=== PATIENT | female | born 1940 | race Caucasian/White ===

== ENCOUNTER 2018-04-19 08:34 | Day surgery (SDC) | payer MEDICARE, OTHER ==
[~2018-04-19] VITALS: Ht 154.9 cm; Wt 46.6 kg
[~2018-04-19 08:34] MED LIST: ACET500T71 PO; ASCO-96 PO; ASPI-496 PO; ASPI-650 PO; CHOL10003 PO; CHRO1TAB7 PO; CRAN500T2 PO; CYAN50008 PO; DICL75TA2 PO; DIPH25TA41 PO; DOCU-131 PO; Focus Factor PO; GABA300C10 PO; GLUC1TAB9 PO; HYDR-3237 PO; HYDR12.58 PO; LISI-170 PO; OMEG1CAP24 PO; ONDA4TAB7 PO; OXYC5CAP2 PO; [UNRECOGNIZED DRUG - OTHER] PO; [UNRECOGNIZED DRUG - REMARK]
[2018-04-19] MEDS ORDERED: THROMBIN 20,000 UNIT VIAL TP ONE (09:05)
[2018-04-19] MEDS ORDERED: METHYLENE BLUE 10 MG/ML 10ML ONE (09:05)
[2018-04-19] MEDS ORDERED: BUPIVACAINE/PF-EPI 0.5% 1:200K ONE (09:05)
[2018-04-19] MEDS ORDERED: BACITRACIN 50,000 UNIT ONE (09:06)
[2018-04-19 09:39] VITALS: BP 114/57
[2018-04-19] MEDS ORDERED: FENTANYL PF 250 MCG/5ML ONE (11:54)
[2018-04-19] MEDS ORDERED: PROMETHAZINE 12.5 MG SUPP PR PRN (12:30)
[2018-04-19] MEDS ORDERED: FENTANYL PF 100 MCG/2ML IV PRN (12:30)
[2018-04-19] MEDS ORDERED: hydrALAzine 20 MG/ML, 1ML IV PRN (12:30)
[2018-04-19] MEDS ORDERED: ONDANSETRON 2MG/ML, 2ML IV PRN (12:30)
[2018-04-19] MEDS ORDERED: MEPERIDINE/PF 25MG/0.5ML IVPush PRN (12:30)
[2018-04-19] MEDS ORDERED: OXYcodone 5 MG/5 ML ORAL.SOL UDC PO PRN (12:30)
[2018-04-19] MEDS ORDERED: HYDROmorphone 1 MG/ML, 1ML IV PRN (12:30)
[2018-04-19] MEDS ORDERED: ACETAMINOPHEN 325 MG TABLET PO PRN (12:30)
[2018-04-19] MEDS ORDERED: METOPROLOL 1 MG/ML, 5ML IV PRN (12:30)
[2018-04-19] MEDS ORDERED: LABETALOL 5MG/ML, 20ML IV PRN (12:30)
[2018-04-19] MEDS ORDERED: methylPREDNISolone SOD SUCC 40 MG/ML ONE (12:45)
[2018-04-19] MEDS ORDERED: FENTANYL PF 100 MCG/2ML ONE (12:45)
[2018-04-19] MEDS ORDERED: DEXAMETHASONE 4 MG/ML, 1ML ONE (13:04)
[2018-04-19] MEDS ORDERED: BUPIVACAINE/PF-EPI 0.5% 1:200K INFIL ONE (13:05)
[2018-04-19] MEDS ORDERED: CEFAZOLIN 1,000 MG ONE (13:06)
[2018-04-19] MEDS ORDERED: ROCURONIUM 10MG/ML,5ML ONE (13:23)
[2018-04-19] MEDS ORDERED: PROPOFOL 10 MG/ML, 20ML ONE (13:23)
[2018-04-19] MEDS ORDERED: ONDANSETRON 2MG/ML, 2ML ONE (13:57)
[2018-04-19] MEDS ORDERED: OXYC1TAB7 PO (14:25)
[2018-04-19] MEDS ORDERED: TIZA2TAB PO (14:25)
[2018-04-19] MEDS ORDERED: SENNA/DOCUSATE TABLET PO PRN (14:30)
[2018-04-19] MEDS ORDERED: PROMETHAZINE 25 MG/ML, 1ML IM PRN (14:30)
[2018-04-19] MEDS ORDERED: ONDANSETRON 2MG/ML, 2ML IVPush PRN (14:30)
[2018-04-19] MEDS ORDERED: NS + 20MEQ KCL 1,000 ML IV SCH (14:30)
[2018-04-19] MEDS ORDERED: DIPHENHYDRAMINE 50 MG CAPSULE PO PRN (14:30)
[2018-04-19] MEDS ORDERED: TIZANIDINE 4MG TABLET PO PRN (14:30)
[2018-04-19] MEDS ORDERED: CEFAZOLIN PMX 1GM/50ML 50 ML IVPB SCH (14:30)
[2018-04-19] MEDS ORDERED: morphine SULFATE 10 MG/ML, 1ML IVPush PRN (14:30)
[2018-04-19] MEDS ORDERED: MAGNESIUM HYDROXIDE 8%, 30ML UDC PO PRN (14:30)
[2018-04-19] MEDS ORDERED: DOCUSATE 100 MG CAPSULE PO PRN (14:30)
[2018-04-19] MEDS ORDERED: PHARMACY MAY ADJ FOR RENAL FX MC PRN (14:30)
[2018-04-19] MEDS ORDERED: OXYcodone/APAP 5/325MG TABLET PO PRN (14:30)
[2018-04-19] MEDS ORDERED: OXYcodone 5 MG/5 ML ORAL.SOL UDC ONE (14:40)
[2018-04-19] MEDS ORDERED: SODIUM CHLORIDE FLUSH 10ML SYR IVF SCH (21:00)
[2018-04-20] MEDS ORDERED: CHOLECALCIFEROL 1,000 UNIT TABLET PO SCH (09:00)
[2018-04-20] MEDS ORDERED: LISINOPRIL 20 MG TABLET PO SCH (09:00)
[2018-04-20] MEDS ORDERED: HYDROCHLOROTHIAZIDE 12.5 MG CAPSULE PO SCH (09:00)
== END 2018-04-19 17:30 | disposition home or self-care (01) ==
LOC: OR 08:34 → 4NOR 08:35 → OR 17:30
PROVIDERS: ATTEND Neurological Surgery
DX: M48.061 Spinal stenosis, lumbar region without neurogenic claudication (principal); M54.16 Radiculopathy, lumbar region; Z87.39 Personal history of other diseases of the musculoskeletal system and connective tissue; Z79.82 Long term (current) use of aspirin
CPT/HCPCS: 63047; 63048; 72100; J0690; J1100; J2405; J2704; J2920; J3010; G0378; Q9968

== ENCOUNTER 2018-07-08 07:06 | Inpatient (IN) | payer MEDICARE, OTHER ==
[~2018-07-08] VITALS: Ht 154.9 cm; Wt 54.7 kg
[~2018-07-08 07:06] MED LIST changes: +BACITRACIN 50,000 UNIT ONE; +BUPIVACAINE/PF 0.25% ONE; -DICL75TA2 PO; +DICL75TA3 PO; +EPINEPHRINE 1 MG/ML, 1ML ONE; -HYDR12.58 PO; +HYDROCHLOROTH12.5 MG PO; +OXYC1TAB7 PO; +THROMBIN 5,000 UNIT VIAL TP ONE; +TIZA2TAB PO
[2018-07-08] MEDS ORDERED: BUPIVACAINE/PF-EPI 0.5% 1:200K ONE (07:12)
[2018-07-08] MEDS ORDERED: GABAPENTIN 300 MG CAPSULE PO ONE (07:30)
[2018-07-08] MEDS ORDERED: OxyconTIN ER 10 MG TAB.ER PO ONE (07:30)
[2018-07-08] MEDS ORDERED: ACETAMINOPHEN 500 MG TABLET PO ONE (07:30)
[2018-07-08] MEDS ORDERED: ONDANSETRON ODT 8 MG PO ONE (07:30)
[2018-07-08] MEDS ORDERED: LACTATED RINGERS 1,000 ML IV SCH (07:31)
[2018-07-08] MEDS ORDERED: ACYC-114 PO (08:09)
[2018-07-08] MEDS ORDERED: ASPI-496 PO (08:09)
[2018-07-08 08:18] VITALS: BP 119/68
[2018-07-08] MEDS ORDERED: MIDAZOLAM 1 MG/ML, 2ML ONE (10:03)
[2018-07-08] MEDS ORDERED: FENTANYL PF 250 MCG/5ML ONE (10:03)
[2018-07-08] MEDS ORDERED: VANCOMYCIN 1,000 MG ONE (10:27)
[2018-07-08] MEDS ORDERED: PHENYLEPHRINE 10 MG/ML ONE (11:04)
[2018-07-08] MEDS ORDERED: PROPOFOL 50 ML ONE ×3 (11:04→14:42)
[2018-07-08] MEDS ORDERED: NEOSTIGMINE 1 MG/ML, 10ML ONE (12:23)
[2018-07-08] MEDS ORDERED: DEXAMETHASONE 4 MG/ML, 1ML ONE (12:23)
[2018-07-08] MEDS ORDERED: ROCURONIUM 10MG/ML,5ML ONE (12:23)
[2018-07-08] MEDS ORDERED: CEFAZOLIN 1,000 MG ONE (12:23)
[2018-07-08] MEDS ORDERED: SUCCINYLCHOLINE 20 MG/ML, 10ML ONE (12:23)
[2018-07-08] MEDS ORDERED: GLYCOPYRROLATE 0.2MG/1ML, 5ML ONE (12:23)
[2018-07-08] MEDS ORDERED: PROPOFOL 10 MG/ML, 20ML ONE (12:23)
[2018-07-08] MEDS ORDERED: EPHEDRINE 50 MG/ML, 1ML ONE (12:34)
[2018-07-08] MEDS ORDERED: ESMOLOL 100 MG/10 ML ONE (16:18)
[2018-07-08 16:51] LABS: BASOPHILS # (AUTO) 0.01 x10^3/uL (0-0.1); BASOPHILS % (AUTO) 0 % (0-1); EOSINOPHILS % (AUTO) 0 % (1-7); LYMPHOCYTES # (AUTO) 0.63 x10^3/uL (1-3.4); LYMPHOCYTES % (AUTO) 7 % (22-44); MD NO; MEAN CORPUSCULAR HEMOGLOBIN 31.1 pg (27.0-34.8); MEAN CORPUSCULAR HGB CONC 33.8 g/dL (32.4-35.8); MEAN CORPUSCULAR VOLUME 92.1 fL (80-100); MEAN PLATELET VOLUME 7.9 fL (7.4-10.4); MONOCYTES # (AUTO) 0.03 x10^3/uL (0.2-0.8); MONOCYTES % (AUTO) 0 % (2-9); NEUTROPHILS # (AUTO) 8.62 x10^3/uL (1.8-6.8); NEUTROPHILS % (AUTO) 93 % (42-75); PLATELET COUNT 226 x10^3/uL (130-400); RED CELL DISTRIBUTION WIDTH 14.1 % (9.6-15.2)
[2018-07-08 16:56] LABS: ANION GAP 8 mmol/L (5-15); CALCIUM 7.8 mg/dL (8.5-10.1); CHLORIDE 106 mmol/L (98-107); CREATININE 0.86 mg/dL (0.55-1.02)
[2018-07-08 16:59] LABS: TROPONIN I < 0.015 ng/mL (0.000-0.045)
[2018-07-08] MEDS ORDERED: HYDROmorphone PCA 30 MG/30 ML IV PRN (17:00)
[2018-07-08] MEDS ORDERED: ACETAMINOPHEN 650 MG/20.3 ML UDC ONE (18:08)
[2018-07-08] MEDS ORDERED: ACETAMINOPHEN 325 MG TABLET PO PRN (18:30)
[2018-07-08] MEDS ORDERED: MAGNESIUM HYDROXIDE 8%, 30ML UDC PO PRN (19:30)
[2018-07-08] MEDS ORDERED: OXYcodone/APAP 5/325MG TABLET PO PRN (19:30)
[2018-07-08] MEDS ORDERED: ONDANSETRON 2MG/ML, 2ML IV PRN (19:30)
[2018-07-08] MEDS ORDERED: ACYCLOVIR MC SCH (19:30)
[2018-07-08] MEDS ORDERED: GABAPENTIN MC SCH (19:30)
[2018-07-08] MEDS ORDERED: BISACODYL 10 MG SUPP PR PRN (19:30)
[2018-07-08] MEDS ORDERED: DIPHENHYDRAMINE 50 MG/ML, 1ML IVPush PRN (19:30)
[2018-07-08] MEDS ORDERED: morphine SULFATE 10 MG/ML, 1ML IV PRN (19:30)
[2018-07-08] MEDS: NS + 20MEQ KCL 1,000 ML IV SCH (20:29)
[2018-07-08] MEDS: CEFAZOLIN PMX 1GM/50ML 50 ML IVPB SCH (21:32)
[2018-07-09] MEDS: CEFAZOLIN PMX 1GM/50ML 50 ML IVPB SCH (03:48)
[2018-07-09 03:59] VITALS: BP 103/58
[2018-07-09 05:16] LABS: BASOPHILS % (AUTO) 0 % (0-1); EOSINOPHILS % (AUTO) 0 % (1-7); LYMPHOCYTES # (AUTO) 0.84 x10^3/uL (1-3.4); LYMPHOCYTES % (AUTO) 9 % (22-44); MD NO; MEAN CORPUSCULAR HEMOGLOBIN 30.6 pg (27.0-34.8); MEAN CORPUSCULAR HGB CONC 33.1 g/dL (32.4-35.8); MEAN CORPUSCULAR VOLUME 92.4 fL (80-100); MEAN PLATELET VOLUME 8.3 fL (7.4-10.4); MONOCYTES # (AUTO) 0.39 x10^3/uL (0.2-0.8); MONOCYTES % (AUTO) 4 % (2-9); NEUTROPHILS # (AUTO) 8.51 x10^3/uL (1.8-6.8); NEUTROPHILS % (AUTO) 87 % (42-75); PLATELET COUNT 183 x10^3/uL (130-400); RED BLOOD COUNT 2.82 x10^6/uL (3.82-5.3); RED CELL DISTRIBUTION WIDTH 14.2 % (9.6-15.2)
[2018-07-09 05:26] LABS: ALBUMIN 2.2 g/dL (3.4-5.0); ANION GAP 9 mmol/L (5-15); CALCIUM 7.4 mg/dL (8.5-10.1); CHLORIDE 106 mmol/L (98-107)
[2018-07-09 05:28] LABS: CREATININE 0.97 mg/dL (0.55-1.02)
[2018-07-09 06:35] VITALS: BP 96/57
[2018-07-09] MEDS: SENNA/DOCUSATE TABLET PO SCH (08:39)
[2018-07-09] MEDS: NS + 20MEQ KCL 1,000 ML IV SCH ×2 (08:43→19:45)
[2018-07-09] MEDS: LISINOPRIL 20 MG TABLET PO SCH (09:00)
[2018-07-09] MEDS: HYDROCHLOROTHIAZIDE 12.5 MG CAPSULE PO SCH (09:00)
[2018-07-09 12:00] LABS: ABSOLUTE RETICS # 0.047 x10^6/uL (0.5-2.5); MEAN CORPUSCULAR HEMOGLOBIN 30.6 pg (27.0-34.8); MEAN CORPUSCULAR HGB CONC 33.4 g/dL (32.4-35.8); MEAN CORPUSCULAR VOLUME 91.4 fL (80-100); MEAN PLATELET VOLUME 8.1 fL (7.4-10.4); PLATELET COUNT 192 x10^3/uL (130-400); RED BLOOD COUNT 2.66 x10^6/uL (3.82-5.3); RED BLOOD COUNT 2.67 x10^6/uL (3.82-5.3); RED CELL DISTRIBUTION WIDTH 14.2 % (9.6-15.2); RETICULOCYTE COUNT % 1.75 % (0.5-1.5)
[2018-07-09 12:14] LABS: BASOPHILS # (AUTO) 0.02 x10^3/uL (0-0.1); BASOPHILS % (AUTO) 0 % (0-1); EOSINOPHILS % (AUTO) 0 % (1-7); LYMPHOCYTES % (AUTO) 10 % (22-44); MD NO; MONOCYTES # (AUTO) 0.74 x10^3/uL (0.2-0.8); MONOCYTES % (AUTO) 6 % (2-9); NEUTROPHILS # (AUTO) 10.13 x10^3/uL (1.8-6.8); NEUTROPHILS % (AUTO) 84 % (42-75)
[2018-07-09 12:32] LABS: THYROID STIMULATING HORMONE 0.894 mIU/L (0.358-3.740)
[2018-07-09 14:21] VITALS: BP_SYST 95; BP_SYST 98; BP_DIAS 63; BP_DIAS 64
[2018-07-09 18:51] VITALS: BP 110/55
[2018-07-09] MEDS: GABAPENTIN 100 MG CAPSULE PO PRN (20:11)
[2018-07-09] MEDS: HYDROcodone/APAP 5/325 TABLET PO PRN (20:11)
[2018-07-10 00:07] VITALS: BP 93/53
[2018-07-10] MEDS: HYDROcodone/APAP 5/325 TABLET PO PRN ×2 (00:16→11:23)
[2018-07-10 06:10] LABS: ANION GAP 7 mmol/L (5-15); CALCIUM 7.7 mg/dL (8.5-10.1); CHLORIDE 108 mmol/L (98-107); CREATININE 0.56 mg/dL (0.55-1.02)
[2018-07-10 06:16] LABS: MEAN CORPUSCULAR HEMOGLOBIN 31.1 pg (27.0-34.8); MEAN CORPUSCULAR HGB CONC 33.7 g/dL (32.4-35.8); MEAN CORPUSCULAR VOLUME 92.1 fL (80-100); MEAN PLATELET VOLUME 8.3 fL (7.4-10.4); PLATELET COUNT 151 x10^3/uL (130-400); RED BLOOD COUNT 2.35 x10^6/uL (3.82-5.3); RED CELL DISTRIBUTION WIDTH 14.2 % (9.6-15.2)
[2018-07-10 06:32] LABS: BASOPHILS # (AUTO) 0.01 x10^3/uL (0-0.1); BASOPHILS % (AUTO) 0 % (0-1); EOSINOPHILS # (AUTO) 0.02 x10^3/uL (0-0.4); EOSINOPHILS % (AUTO) 0 % (1-7); LYMPHOCYTES # (AUTO) 1.01 x10^3/uL (1-3.4); LYMPHOCYTES % (AUTO) 11 % (22-44); MD SCAN; MONOCYTES # (AUTO) 0.65 x10^3/uL (0.2-0.8); MONOCYTES % (AUTO) 7 % (2-9); NEUTROPHILS % (AUTO) 82 % (42-75)
[2018-07-10 06:38] VITALS: BP 107/63
[2018-07-10] MEDS: NS + 20MEQ KCL 1,000 ML IV SCH ×2 (07:51→18:32)
[2018-07-10] MEDS: SENNA/DOCUSATE TABLET PO SCH (07:52)
[2018-07-10] MEDS: LISINOPRIL 20 MG TABLET PO SCH (07:52)
[2018-07-10] MEDS: HYDROCHLOROTHIAZIDE 12.5 MG CAPSULE PO SCH (07:52)
[2018-07-10 12:01] VITALS: BP 102/54
[2018-07-10 17:58] VITALS: BP 130/63
[2018-07-10 19:36] VITALS: BP 133/58
[2018-07-11] VITALS (16 sets, daily range): BP systolic 56–132; BP diastolic 30–69
[2018-07-11] MEDS: HYDROcodone/APAP 5/325 TABLET PO PRN ×2 (04:35→09:33)
[2018-07-11 05:49] LABS: MEAN CORPUSCULAR HEMOGLOBIN 31.3 pg (27.0-34.8); MEAN CORPUSCULAR VOLUME 91.8 fL (80-100); MEAN PLATELET VOLUME 7.9 fL (7.4-10.4); PLATELET COUNT 157 x10^3/uL (130-400); RED BLOOD COUNT 2.23 x10^6/uL (3.82-5.3); RED CELL DISTRIBUTION WIDTH 14.3 % (9.6-15.2)
[2018-07-11 06:23] LABS: BASOPHILS % (AUTO) 0 % (0-1); EOSINOPHILS % (AUTO) 0 % (1-7); LYMPHOCYTES # (AUTO) 0.54 x10^3/uL (1-3.4); LYMPHOCYTES % (AUTO) 5 % (22-44); MD SCAN; MONOCYTES # (AUTO) 0.48 x10^3/uL (0.2-0.8); MONOCYTES % (AUTO) 5 % (2-9); NEUTROPHILS # (AUTO) 9.08 x10^3/uL (1.8-6.8); NEUTROPHILS % (AUTO) 90 % (42-75)
[2018-07-11] MEDS: NS + 20MEQ KCL 1,000 ML IV SCH ×2 (06:49→16:50)
[2018-07-11] MEDS ORDERED: HYDR-3240 PO (08:47)
[2018-07-11] MEDS ORDERED: TIZA2TAB PO (08:47)
[2018-07-11] MEDS: HYDROCHLOROTHIAZIDE 12.5 MG CAPSULE PO SCH (08:56)
[2018-07-11] MEDS: SENNA/DOCUSATE TABLET PO SCH (08:57)
[2018-07-11] MEDS: LISINOPRIL 20 MG TABLET PO SCH (08:57)
[2018-07-11] MEDS ORDERED: TIZANIDINE 4MG TABLET PO PRN (09:00)
[2018-07-11] MEDS ORDERED: SODIUM CHLORIDE 0.9%, 500ML IVBOLUS ONE (13:00)
[2018-07-11] MEDS: GABAPENTIN 100 MG CAPSULE PO PRN (22:02)
[2018-07-11] MEDS ORDERED: ACETAMINOPHEN 325 MG TABLET PO PRN (23:30)
[2018-07-12 01:01] VITALS: BP 133/61
[2018-07-12] MEDS: NS + 20MEQ KCL 1,000 ML IV SCH ×3 (01:18→22:06)
[2018-07-12 05:40] LABS: BASOPHILS # (AUTO) 0.01 x10^3/uL (0-0.1); BASOPHILS % (AUTO) 0 % (0-1); EOSINOPHILS % (AUTO) 0 % (1-7); LYMPHOCYTES # (AUTO) 0.59 x10^3/uL (1-3.4); LYMPHOCYTES % (AUTO) 6 % (22-44); MD NO; MEAN CORPUSCULAR HEMOGLOBIN 31.1 pg (27.0-34.8); MEAN CORPUSCULAR VOLUME 91.4 fL (80-100); MONOCYTES # (AUTO) 0.38 x10^3/uL (0.2-0.8); MONOCYTES % (AUTO) 4 % (2-9); NEUTROPHILS # (AUTO) 9.25 x10^3/uL (1.8-6.8); NEUTROPHILS % (AUTO) 90 % (42-75); PLATELET COUNT 167 x10^3/uL (130-400); RED BLOOD COUNT 2.84 x10^6/uL (3.82-5.3); RED CELL DISTRIBUTION WIDTH 14.4 % (9.6-15.2)
[2018-07-12 07:34] VITALS: BP 132/68
[2018-07-12] MEDS: LISINOPRIL 20 MG TABLET PO SCH (09:00)
[2018-07-12] MEDS: HYDROCHLOROTHIAZIDE 12.5 MG CAPSULE PO SCH (09:00)
[2018-07-12 09:30] VITALS: BP 118/51
[2018-07-12] MEDS: SENNA/DOCUSATE TABLET PO SCH (09:32)
[2018-07-12] MEDS: DOCUSATE 100 MG CAPSULE PO PRN (11:33)
[2018-07-12 14:06] VITALS: BP 133/55
[2018-07-12 19:32] VITALS: BP 108/54
[2018-07-12] MEDS: GABAPENTIN 100 MG CAPSULE PO SCH (20:36)
[2018-07-12] MEDS: HYDROcodone/APAP 5/325 TABLET PO PRN (20:43)
[2018-07-13 00:50] VITALS: BP 112/66
[2018-07-13] MEDS: HYDROcodone/APAP 5/325 TABLET PO PRN ×3 (04:17→19:10)
[2018-07-13 09:00] VITALS: BP 117/50
[2018-07-13] MEDS: NS + 20MEQ KCL 1,000 ML IV SCH ×2 (09:00→18:35)
[2018-07-13] MEDS: SENNA/DOCUSATE TABLET PO SCH (09:08)
[2018-07-13] MEDS: GABAPENTIN 100 MG CAPSULE PO SCH ×2 (09:08→19:10)
[2018-07-13] MEDS: HYDROCHLOROTHIAZIDE 12.5 MG CAPSULE PO SCH (09:08)
[2018-07-13] MEDS: LISINOPRIL 20 MG TABLET PO SCH (09:11)
[2018-07-13] MEDS: TIZANIDINE 2MG TABLET PO PRN (11:04)
[2018-07-13 15:45] VITALS: BP 104/50
[2018-07-13 19:05] VITALS: BP 102/53
[2018-07-14 01:04] VITALS: BP 112/77
[2018-07-14] MEDS: NS + 20MEQ KCL 1,000 ML IV SCH (05:00)
[2018-07-14] MEDS: HYDROcodone/APAP 5/325 TABLET PO PRN ×4 (05:44→23:59)
[2018-07-14 07:26] VITALS: BP 116/49
[2018-07-14] MEDS: GABAPENTIN 100 MG CAPSULE PO SCH ×2 (07:48→19:56)
[2018-07-14] MEDS: TIZANIDINE 2MG TABLET PO PRN ×2 (07:48→19:56)
[2018-07-14] MEDS: SENNA/DOCUSATE TABLET PO SCH (07:48)
[2018-07-14] MEDS: LISINOPRIL 20 MG TABLET PO SCH (11:02)
[2018-07-14] MEDS: HYDROCHLOROTHIAZIDE 12.5 MG CAPSULE PO SCH (11:02)
[2018-07-14 15:21] VITALS: BP 105/59
[2018-07-14] MEDS: DOCUSATE 100 MG CAPSULE PO PRN (20:16)
[2018-07-14 20:26] VITALS: BP 114/43
[2018-07-15 02:24] VITALS: BP 107/50
[2018-07-15] MEDS: HYDROcodone/APAP 5/325 TABLET PO PRN ×4 (04:21→20:48)
[2018-07-15] MEDS: TIZANIDINE 2MG TABLET PO PRN (05:45)
[2018-07-15] MEDS: DOCUSATE 100 MG CAPSULE PO PRN ×2 (05:45→15:44)
[2018-07-15 07:57] VITALS: BP 109/60
[2018-07-15] MEDS: LISINOPRIL 20 MG TABLET PO SCH (09:00)
[2018-07-15] MEDS: GABAPENTIN 100 MG CAPSULE PO SCH ×2 (11:30→20:48)
[2018-07-15] MEDS: SENNA/DOCUSATE TABLET PO SCH (11:30)
[2018-07-15] MEDS: HYDROCHLOROTHIAZIDE 12.5 MG CAPSULE PO SCH (11:31)
[2018-07-15 14:00] VITALS: BP 112/76
[2018-07-15 17:00] VITALS: BP 105/65
[2018-07-15 20:05] VITALS: BP 95/52
[2018-07-16] MEDS: HYDROcodone/APAP 5/325 TABLET PO PRN ×3 (01:07→10:30)
[2018-07-16 03:06] VITALS: BP 93/48
[2018-07-16 07:22] VITALS: BP 112/51
[2018-07-16] MEDS: SENNA/DOCUSATE TABLET PO SCH (08:39)
[2018-07-16] MEDS: GABAPENTIN 100 MG CAPSULE PO SCH (08:39)
[2018-07-16] MEDS: HYDROCHLOROTHIAZIDE 12.5 MG CAPSULE PO SCH (08:39)
[2018-07-16] MEDS: LISINOPRIL 20 MG TABLET PO SCH (08:39)
[2018-07-16 12:35] VITALS: BP 102/66
== END 2018-07-16 13:23 | DRG 453 ==
LOC: ORIP 07:06 → 5SO 18:47 → 4NOR 07-10 17:53
PROVIDERS: ADMIT Neurological Surgery; ATTEND Neurological Surgery
PROC: 0SG30AJ Fusion of Lumbosacral Joint with Interbody Fusion Device, Posterior Approach, Anterior Column, Open Approach (ICD-10-PCS; 2018-07-08)
PROC: 0SG1071 Fusion of 2 or more Lumbar Vertebral Joints with Autologous Tissue Substitute, Posterior Approach, Posterior Column, Open Approach (ICD-10-PCS; 2018-07-08)
PROC: 00UT07Z Supplement Spinal Meninges with Autologous Tissue Substitute, Open Approach (ICD-10-PCS; 2018-07-08)
PROC: 0SG00AJ Fusion of Lumbar Vertebral Joint with Interbody Fusion Device, Posterior Approach, Anterior Column, Open Approach (ICD-10-PCS; principal; 2018-07-08 10:00)
PROC: 30233N1 Transfusion of Nonautologous Red Blood Cells into Peripheral Vein, Percutaneous Approach (ICD-10-PCS; 2018-07-11)
DX: M43.16 Spondylolisthesis, lumbar region (principal); E43 Unspecified severe protein-calorie malnutrition; G97.41 Accidental puncture or laceration of dura during a procedure; D64.9 Anemia, unspecified; I10 Essential (primary) hypertension; M19.90 Unspecified osteoarthritis, unspecified site; Z90.710 Acquired absence of both cervix and uterus; Z79.82 Long term (current) use of aspirin; Z79.899 Other long term (current) drug therapy; Z88.8 Allergy status to other drugs, medicaments and biological substances; Z80.9 Family history of malignant neoplasm, unspecified; Z82.3 Family history of stroke; Z83.3 Family history of diabetes mellitus; M48.00 Spinal stenosis, site unspecified; Z68.22 Body mass index [BMI] 22.0-22.9, adult; I07.1 Rheumatic tricuspid insufficiency
CPT/HCPCS: 36415; 72100; 80048; 82040; 82607; 82746; 83540; 83550; 83735; 84443; 84484; 85025; 85045; 86078; 86850; 86900; 86923; 93005; 93306; 95938; 95941; C1713; C1776; G0378; J0171; J0690; J1100; J2250; J2704; J2710; J3010; J3370; J3480; J3490; Q0162; C1762; C1781; J0330; J2370; J7040; J7120; P9016